=== PATIENT | male | born 1970 | race Caucasian/White ===

== ENCOUNTER 2020-05-29 18:52 | Emergency (ER) | payer OTHER ==
[~2020-05-29] VITALS: Ht 180.3 cm; Wt 104.3 kg
[2020-05-29 19:41] VITALS: BP 163/86
--- NOTE | 2020-05-29 19:48 | ER.PDOC ---
General Chief Complaint: Requesting Medical Care Stated Complaint: BACK PAIN Time seen by MD: 19:41 Source: patient Exam Limitations: no limitations History of Present Illness Initial Comments Patient c/o 4 day history LBP without traumatic injury. Pain started when he raised his hands up over his head and has progressively worsened since. He has had intermittent pain in LLE to knee without c/o numbness/weakness/tingling. He has had longstanding issues with his low back but it has never hurt this badly. No report of loss of bowel/bladder function. Timing/Duration: other (4 days ago) Severity/Quality: severe, radiation (LLE to knee) Radiation: upper legs (left) Method of Injury: other (raised arms above his head) Modifying Factors: improves with immobilization Associated Symptoms: muscle spasms Past Medical History Medical History: no pertinent history Family History Significant Family History: no pertinent family hx Social History Smoking: non-smoker Alcohol Use: none Drug Use: none Review of Systems Constitutional: no symptoms reported EENTM: no symptoms reported Respiratory: no symptoms reported Cardiovascular: no symptoms reported Gastrointestinal: no symptoms reported Genitourinary: no symptoms reported Musculoskeletal: see HPI, back pain Skin: no symptoms reported Psychiatric/Neurological: no symptoms reported Physical Exam General Appearance: No Apparent Distress (appears acutely uncomfortable) Neck: Non-Tender, Normal Alignment Cardiovascular/Respiratory: Regular Rate, Rhythm, Normal Breath Sounds, No Respiratory Distress Gastrointestinal: Normal Bowel Sounds, Non Tender Back: No CVA Tenderness, No Vertebral Tenderness, Muscle Spasm (paravetebral musculature R>L) Extremities: No Evidence of Injury, Normal Range of Motion, No Pedal Edema Neuro/Psych: Alert, No Motor/Sensory Deficits Skin: Normal Color, Warm/Dry Results/Orders Results/Orders Orders - MEGHAN WALSH DO Ketorolac Tromethamine (Toradol) (05/29/20 19:50) Fentanyl Citrate/Pf (Sublimaze) (05/29/20 19:50) Prednisone (Prednisone) (05/29/20 19:50) Cyclobenzaprine Hcl (Flexeril) (05/29/20 19:50) Promethazine Hcl (Phenergan) (05/29/20 19:50) Ct Lumbar Wo Contrast (05/29/20 19:50) Ketorolac Tromethamine (Toradol) (05/29/20 19:55) Vital Signs Date Time Temp Pulse Resp B/P (MAP) Pulse Ox O2 Delivery O2 Flow Rate FiO2 05/29/20 19:41 98.2 79 16 05/29/20 19:41 98.2 79 16 98 05/29/20 19:41 98.2 79 16 163/86 (111) 98 Room Air Administered Medications Medications (Trade) Dose Ordered Sig/Ruslan Route PRN Reason Start Time Stop Time Status Last Admin Dose Admin Cyclobenzaprine HCl (Flexeril) 10 mg STAT STAT PO 05/29/20 19:50 05/29/20 19:51 UNV 05/29/20 20:04 10 MG Fentanyl Citrate (Sublimaze) 100 mcg STAT STAT IM 05/29/20 19:50 05/29/20 19:51 UNV 05/29/20 20:03 100 MCG Ketorolac Tromethamine (Toradol) 60 mg STAT STAT IM 05/29/20 19:50 05/29/20 19:51 UNV 05/29/20 20:03 60 MG Prednisone (Prednisone) 60 mg STAT STAT PO 05/29/20 19:50 05/29/20 19:51 UNV 05/29/20 20:04 60 MG Promethazine HCl (Phenergan) 25 mg STAT STAT PO 05/29/20 19:50 05/29/20 19:51 UNV 05/29/20 20:04 25 MG EKG/XRAY/CT/US CT Comments: no acute fx: lower lumbar degenerative disc disease ER DEPART Departure Time of Disposition: 20:48 Disposition: HOME, SELF-CARE Impression: Primary Impression: Acute lumbosacral myofascial strain Additional Impression: Lumbar disc disease with radiculopathy Condition: Improved Patient Instructions: Low Back Strain with Rehab-SportsMed, Lumbosacral Radiculopathy Referrals: PCP,UNKNOWN (PCP) PRIMARY CARE PROVIDER PAULINA MAC MD Additional Instructions: Off work until June 04, 2020. Rest at home. Ice to lumbar region. Take steroids as prescribed until all gone. Take muscle relaxers as prescribed when needed for spasm. Alternate Tylenol and Motrin per package instructions every 4 hours as needed for pain. You may augment pain control with mild narcotic as prescribed. Follow up with Dr. Mac 1-2 days for reevaluation. Return to ER if you develop any weakness to leg(s), loss of bowel/bladder control, or for any other emergent concerns. Duration or Time Spent with Pa: 20 min Problem Qualifiers Primary Impression: Acute lumbosacral myofascial strain Encounter type: initial encounter Qualified Codes: S39.012A - Strain of muscle, fascia and tendon of lower back, initial encounter MEGHAN WALSH DO May 29, 2020 19:48
[2020-05-29] MEDS ORDERED: TORADOL IM STA (19:50)
[2020-05-29] MEDS ORDERED: PREDNISONE PO STA (19:50)
[2020-05-29] MEDS ORDERED: FLEXERIL PO STA (19:50)
[2020-05-29] MEDS ORDERED: PHENERGAN PO STA (19:50)
[2020-05-29] MEDS ORDERED: SUBLIMAZE IM STA (19:50)
[2020-05-29] MEDS ORDERED: TORADOL ONE (19:55)
[2020-05-29] MEDS ORDERED: FLEXERIL ONE (19:55)
[2020-05-29] MEDS ORDERED: PHENERGAN ONE (19:55)
[2020-05-29] MEDS ORDERED: PREDNISONE ONE (19:56)
[2020-05-29] MEDS ORDERED: SUBLIMAZE ONE (19:56)
--- NOTE | 2020-05-29 20:38 | DIREP ---
PROCEDURE: CT SPINE LUMBAR W/O TECHNIQUE:Axial cuts were obtained through the lumbar spine. The images were viewed at bone settings. COMPARISON:None. INDICATIONS:severe low back pain FINDINGS: ALIGNMENT:Normal. VERTEBRAE:Normal. PARASPINAL AREA:Normal. OTHER:No additional findings. LUMBAR DISC LEVELS T12-L1:Normal. L1-L2:Normal. L2-L3:Normal. L3-L4:Broad-based posterior disc bulge with at least moderate bilateral neural foraminal narrowing.. L4-L5:Broad-based posterior disc bulge with at least moderate bilateral neural foraminal narrowing.. L5-S1:Disc desiccation height loss with circumferential disc bulge. Moderate bilateral neural foraminal narrowing. CONCLUSION:Lower lumbar degenerative joint disease. No acute fracture Dictated by: Pietro Mehta DO on 05/29/2020 at 08:36 PM
[2020-05-29 20:45] VITALS: BP 148/78
[2020-05-29 21:27] VITALS: BP 142/78
== END 2020-05-29 21:30 | disposition home or self-care (01) ==
LOC: ER 18:52
DX: S39.012A Strain of muscle, fascia and tendon of lower back, initial encounter (principal); M51.16 Intervertebral disc disorders with radiculopathy, lumbar region; Z79.1 Long term (current) use of non-steroidal anti-inflammatories (NSAID); Z79.899 Other long term (current) drug therapy; X58.XXXA Exposure to other specified factors, initial encounter; Y93.89 Activity, other specified; Y92.89 Other specified places as the place of occurrence of the external cause; Y99.8 Other external cause status
CPT/HCPCS: 72131; 96372; 99284; J1885; J3010; J7512